=== PATIENT | female | born 1950 | race Caucasian/White ===

== ENCOUNTER → 2018-06-14 | Outpatient (REF) | payer MEDICARE, OTHER | LOC: M SFHCLERA 15:48 | PROVIDERS: ATTEND Nurse Practitioner Family | DX: R53.81 Other malaise (principal) ==

== ENCOUNTER → 2018-08-10 | Outpatient (CLI) | payer MEDICARE, OTHER ==
--- NOTE | 2018-08-10 13:33 | REP ---
PA and lateral chest: There are no comparisons. The lung charles are clear. The cardiac size is normal. The victor hugo, mediastinum, and skeletal structures are unremarkable. Impression: Negative PA and lateral chest. Electronically Signed by Ronnie Reyes MD 08/10/2018 01:24 P
== END ==
LOC: M LRY 12:49
PROVIDERS: ATTEND Physician Assistant
DX: R05 Cough (principal)
CPT/HCPCS: 71046; G0463